=== PATIENT | female | born 1985 | race African-American/Black ===

== ENCOUNTER 2017-03-02 23:09 | Emergency (ER) | payer OTHER ==
[~2017-03-02] VITALS: Ht 162.6 cm; Wt 90.7 kg
[~2017-03-02 23:09] MED LIST: NORCO 5-325 TA1 EACH PO
[2017-03-03 00:03] LABS: ABSOLUTE NEUTROPHILS 4.9 thou/uL (1.4-8.2); BASOPHILS 0.4 % (0.0-2.0); EOSINOPHILS 5.8 % (0.0-3.0); HEMATOCRIT 28.3 % (37.0-47.0); HEMOGLOBIN 8.9 gm/dL (12.0-15.0); LYMPHOCYTES 28.5 % (24.0-44.0); MCHC 31.6 g/dL (28.0-37.0); MCV 63.3 fL (80.0-100.0); PLATELET COUNT 234 thou/uL (150-400); POLYS 55.3 % (36.0-66.0); RBC 4.46 mil/uL (4.20-5.00); RDW 18.9 % (10.5-14.5); WBC 8.8 thou/uL (4.0-11.0)
[2017-03-03 00:04] LABS: MANUAL DIFF NO; OBSERVED RETIC COUNT 0.91 % (0.6-2.6)
[2017-03-03 00:05] LABS: ABSOLUTE RETIC COUNT 0.0404 10^6/uL; CALCIUM 8.3 mg/dL (8.5-10.1); CREATININE 0.8 mg/dL (0.6-1.0); POTASSIUM 3.4 mmol/L (3.5-5.1)
[2017-03-03 01:06] VITALS: BP 113/71
[2017-03-03 01:21] LABS: TARGET CELLS OCCASIONAL
[2017-03-03 01:22] LABS: OVALOCYTES 2+
[2017-03-03 01:23] LABS: HYPOCHROMASIA SLIGHT; MICROCYTES 2+; POLYCHROMASIA OCCASIONAL
[2017-03-03 01:24] LABS: ANISOCYTOSIS 3+
== END 2017-03-03 01:07 | disposition home or self-care (01) ==
LOC: ER 23:09
PROVIDERS: Emergency Medicine
DX: R52 Pain, unspecified (principal); J45.909 Unspecified asthma, uncomplicated; D57.1 Sickle-cell disease without crisis; F17.210 Nicotine dependence, cigarettes, uncomplicated; Z88.1 Allergy status to other antibiotic agents; Z88.0 Allergy status to penicillin